=== PATIENT | female | born 1970 | race Caucasian/White ===

== ENCOUNTER 2022-01-23 11:36 | Emergency (ER) | payer MEDICAID ==
[~2022-01-23] VITALS: Ht 154.9 cm; Wt 71.4 kg
[~2022-01-23 11:36] MED LIST: MECL-110 PO; [UNRECOGNIZED DRUG - CODE] PO
[2022-01-23] MEDS ORDERED: ACETAMINOPHEN 500 MG TABLET PO ONE (12:30)
[2022-01-23 12:50] LABS: COVID AG,FIA SOURCE NASOPHARYNGEAL
[2022-01-23 13:17] LABS: INFLUENZA TYPE A NEGATIVE FOR TYPE A (NEGATIVE); INFLUENZA TYPE B NEGATIVE FOR TYPE B (NEGATIVE)
[2022-01-23] MEDS ORDERED: PROM118S5 PO (13:31)
[2022-01-23] MEDS ORDERED: BENZ-70 PO (13:31)
[2022-01-23 13:39] VITALS: BP 118/74
== END 2022-01-23 13:41 | disposition home or self-care (01) ==
LOC: EMS 11:38
DX: J20.9 Acute bronchitis, unspecified (principal); B34.9 Viral infection, unspecified; Z20.822 Contact with and (suspected) exposure to COVID-19
CPT/HCPCS: 71045; 87804; 99284

== ENCOUNTER 2022-03-05 22:20 | Emergency (ER) | payer MEDICAID ==
[~2022-03-05] VITALS: Ht 124.5 cm; Wt 72.7 kg
[~2022-03-05 22:20] MED LIST changes: +BENZ-70 PO; +PROM118S5 PO
[2022-03-05 22:35] VITALS: BP 130/71
== END 2022-03-06 02:00 | disposition left against medical advice (07) ==
LOC: EMS 22:50
DX: Z53.21 Procedure and treatment not carried out due to patient leaving prior to being seen by health care provider (principal)

== ENCOUNTER 2024-07-24 17:07 | Emergency (ER) | payer MEDICAID, OTHER ==
[~2024-07-24] VITALS: Ht 149.9 cm; Wt 76.0 kg
[~2024-07-24 17:07] MED LIST changes: +BENZ-227 PO; -BENZ-70 PO
[2024-07-24 17:14] VITALS: TEMP 98.9
[2024-07-24 17:25] LABS: COVID AG,FIA SOURCE NASAL SWAB
[2024-07-24 17:43] LABS: BASOPHILS % (AUTO) 1.1 % (0.0-2.0); EOSINOPHILS % (AUTO) 2.2 % (1.0-6.0); HEMATOCRIT 42.4 % (36-46); HEMOGLOBIN 14.2 g/dL (12.0-16.0); LYMPHOCYTES # (AUTO) 4.5 K/uL (1.0-4.8); LYMPHOCYTES % (AUTO) 41.7 % (22.0-44.0); MEAN CORPUSCULAR HEMOGLOBIN 29.6 pg (26.0-34.0); MEAN CORPUSCULAR HGB CONC 33.4 G/dL (31.0-37.0); MEAN CORPUSCULAR VOLUME 89 fL (80-100); MONOCYTES # (AUTO) 0.9 K/uL (0.1-1.0); MONOCYTES % (AUTO) 8.3 % (2.0-9.0); NEUTROPHILS % (AUTO) 46.7 % (40.0-70.0); PLATELET COUNT (AUTO) 373 K/uL (150-450); RED BLOOD CELL COUNT(AUTO) 4.79 MIL/uL (4.00-5.20); RED CELL DISTRIBUTION WIDTH 13.3 % (11.5-14.5); WHITE BLOOD COUNT (AUTO) 10.8 K/uL (4.5-11.0)
[2024-07-24 17:56] LABS: ANION GAP 12 mmol/L (8-16); CALCIUM, TOTAL 9.1 mg/dL (8.8-10.5); CARBON DIOXIDE 24 mmol/L (22-29); CHLORIDE 105 mmol/L (98-107); CREATININE 0.67 mg/dL (0.60-1.30); GLOMERULAR FILTR. RATE CALC > 60 mL/min (>60); GLUCOSE,RANDOM 109 mg/dL (70-110); SODIUM SERUM 141 mmol/L (136-145); UREA NITROGEN, BLOOD 17 mg/dL (7-18)
[2024-07-24 18:02] LABS: B-TYPE NATRIURETIC PEPTIDE 7 pg/mL (0-100)
[2024-07-24] MEDS: ONDANSETRON HCL 4 MG/2 ML VIAL IVP ONE (18:05)
[2024-07-24] MEDS: SODIUM CHLORIDE 0.9% 1,000 ML IV ONE (18:05)
[2024-07-24] MEDS: POTASSIUM CHLORIDE 20 MEQ ER TABLET PO ONE (18:06)
[2024-07-24 18:11] LABS: TROPONIN I-HIGH SENSITIVITY Less Than 4 ng/L (<51)
[2024-07-24 18:32] LABS: SARS-COV2 (COVID) ANTIGEN,FIA Negative (Negative)
[2024-07-24 18:34] LABS: INFLUENZA TYPE A NEGATIVE FOR TYPE A (NEGATIVE); INFLUENZA TYPE B NEGATIVE FOR TYPE B (NEGATIVE)
[2024-07-24] MEDS ORDERED: AZIT-164 PO (18:41)
[2024-07-24] MEDS ORDERED: BENZ-227 PO (18:41)
[2024-07-24] MEDS: AZITHROMYCIN 500 MG TABLET PO ONE (18:44)
[2024-07-24] MEDS: BENZONATATE 100 MG CAPSULE PO ONE (18:44)
[2024-07-24 18:47] VITALS: BP 121/66; PULSE 88; RESP 18; O2SAT 98
== END 2024-07-24 19:03 | disposition home or self-care (01) ==
LOC: EMS 17:07
DX: J18.9 Pneumonia, unspecified organism (principal); Z20.822 Contact with and (suspected) exposure to COVID-19
CPT/HCPCS: 99285; 96374; 71045; 96361; 87426; 80048; 83880; 84484; 85025; 87804; 36415; 93005; J0456; J2405; J7030